=== PATIENT | female | born 1970 | race Caucasian/White ===

== ENCOUNTER 2024-02-07 17:21 | Observation (INO) | payer OTHER ==
[2024-02-07 17:58] LABS: HEMATOCRIT 41.9 % (32.4-45.2); HEMOGLOBIN 13.7 G/dL (10.7-15.3); MCHC 32.7 g/dl (32.0-36.0); MEAN CELL VOLUME 91.7 fl (80-96); RBC 4.57 10^6/uL (3.60-5.2); RDW 13.8 % (11.6-15.6)
[2024-02-07] MEDS: KETOROLAC TROMETHAMINE 15 MG/ML VIAL IVPUSH ONE (18:10)
[2024-02-07 18:17] LABS: PLATELET ESTIMATE ADEQUATE
[2024-02-07 18:24] LABS: ALBUMIN 4.6 g/dl (3.4-5.0); ALK PHOS 66 U/L (45-117); ANION GAP 7 mmol/L (4-13); BILIRUBIN,TOTAL 0.5 mg/dl (0.2-1); CALCIUM 9.9 mg/dl (8.5-10.1); CHLORIDE 102 mmol/L (98-107); CO2 33 mmol/L (21-32); CREATININE 0.9 mg/dl (0.6-1.3); GLUCOSE,RANDOM 116 mg/dl (74-106); POTASSIUM 3.8 mmol/L (3.5-5.1); SGOT/AST 20 U/L (15-37); SGPT/ALT 20 U/L (7-52); SODIUM 142 mmol/L (136-145); TOT PROT 6.9 g/dl (6.4-8.2)
[2024-02-07] MEDS ORDERED: AMPICILLIN NA/SULBACTAM NA 3 GM VIAL ONE (20:27)
[2024-02-07] MEDS: AMPICILLIN NA/SULBACTAM NA 3 GM in SODIUM CHLORIDE 100 ML IVPB ONE (20:46)
[2024-02-07 22:49] VITALS: BMI 23.0
[2024-02-08] MEDS: AMPICILLIN NA/SULBACTAM NA 3 GM in SODIUM CHLORIDE 100 ML IVPB SCH (03:39)
[2024-02-08 06:10] VITALS: RESP 18
[2024-02-08 08:34] LABS: HEMATOCRIT 37.7 % (32.4-45.2); HEMOGLOBIN 12.2 G/dL (10.7-15.3); MCH 29.8 pg (25.7-33.7); MCHC 32.3 g/dl (32.0-36.0); MEAN CELL VOLUME 92.2 fl (80-96); MEAN PLT VOLUME 8.2 fl (7.5-11.1); PLATELET COUNT 193.1 10^3/uL (134-434); RBC 4.09 10^6/uL (3.60-5.2); RDW 13.6 % (11.6-15.6); WHITE BLOOD COUNT 8.3 10^3/uL (4.0-10.8)
[2024-02-08 09:17] LABS: CALCIUM 9.6 mg/dl (8.5-10.1); CREATININE 0.9 mg/dl (0.6-1.3); MAGNESIUM 1.9 mg/dL (1.8-2.4); PHOSPHOROUS 4.4 (2.5-4.9); POTASSIUM 3.8 mmol/L (3.5-5.1)
[2024-02-08] MEDS: ENOXAPARIN NA (PORCINE) 40 MG/0.4 ML DISP.SYRIN SQ SCH (09:43)
[2024-02-08] MEDS ORDERED: guaiFENesin/D-METHORPHAN HB 10 ML UNIT-DOSE CUPS PO PRN (12:32)
[2024-02-08] MEDS: PHENOL 177 ML SPRAY BOTTLE MM SCH (12:42)
[2024-02-08 14:14] VITALS: BP 105/68; PULSE 70; TEMP 98.4
[2024-02-08] MEDS: BENZOCAINE/MENTH/CETYLPYRD CL 1 EACH LOZENGE MM SCH (14:50)
[2024-02-08] MEDS: ACETAMINOPHEN 160 MG/5 ML *Children Solution PO ONE (16:48)
== END 2024-02-08 17:50 | disposition home or self-care (01) ==
LOC: FER 17:21 → INTOOBSV 21:12 → FM/S 21:12 → OBSVTOIN 21:12 → UNDOADMOB 22:09 → FM/S 22:09
PROVIDERS: ADMIT Internal Medicine; ATTEND Internal Medicine
PROC: 3E03329 Introduction of Other Anti-infective into Peripheral Vein, Percutaneous Approach (ICD-10-PCS; principal; 2024-02-07)
PROC: 3E0333Z Introduction of Anti-inflammatory into Peripheral Vein, Percutaneous Approach (ICD-10-PCS; 2024-02-07)
DX: J36 Peritonsillar abscess (principal)
CPT/HCPCS: 0241U-QW; 36415; 70491-TC; 80048; 80053; 83735; 84100; 85027; 86140; 99285-25; G0378; Q9967